=== PATIENT | male | born 1980 | race African-American/Black ===

== ENCOUNTER 2022-10-23 12:10 | Inpatient (IN) | payer OTHER ==
[~2022-10-23] VITALS: Ht 185.4 cm; Wt 92.5 kg
[2022-10-23] MEDS ORDERED: MORPHINE SULFATE 4 MG/ML CPJ (NOT FOR IM USE) IV STA (14:22)
[2022-10-23] MEDS ORDERED: ONDANSETRON HCL 4MG/2ML INJ IV STA (14:22)
[2022-10-23] MEDS ORDERED: SODIUM CHLORIDE 0.9% 1,000 ML IV ONE (14:30)
[2022-10-23 15:04] LABS: HEMATOCRIT. 40.3 % (42.0-52.0); HEMOGLOBIN. 13.5 g/dL (14.0-18.0); MEAN CORPUSCULAR HEMOGLOBIN 31.1 pg (28.0-32.0); MEAN CORPUSCULAR VOLUME 92.8 fL (80.0-94.0); MEAN PLATELET VOLUME 8.3 fl (7.4-10.4); PLATELET 279 x1000/uL (130-400); RED BLOOD CELL COUNT 4.34 mill/uL (4.7-6.1); RED CELL DISTRIBUTION WIDTH 13.9 % (11.6-14.6)
[2022-10-23 15:15] LABS: CHLORIDE 100 mEq/L (98-107)
[2022-10-23 15:46] LABS: INR 1.4; PARTIAL THROMBOPLASTIN TIME 32.5 sec (23.4-31.0); PROTHROMBIN TIME 14.4 sec (9.6-11.0)
[2022-10-23 16:25] LABS: PLATELET ESTIMATE NORMAL
[2022-10-23] MEDS ORDERED: PIPERACILLIN/TAZ 3.375G PREMIX 50 ML IV ONE (16:30)
[2022-10-23] MEDS ORDERED: SKIN ADHESIVE 0.7 GM EA TOP ONE (18:45)
[2022-10-23] MEDS ORDERED: BUPIVACAINE HCL/PF 0.5% (5MG/ML) 10ML ONE (18:45)
[2022-10-23] MEDS ORDERED: DEXAMETHASONE 4MG/ML 1ML VIAL ONE (19:45)
[2022-10-23] MEDS ORDERED: SUCCINYLCHOLINE CHLORIDE 200MG/10ML IV ONE (19:45)
[2022-10-23] MEDS ORDERED: ROCURONIUM BROMIDE 10MG/ML VIAL 5ML IV ONE (19:45)
[2022-10-23] MEDS ORDERED: NEOSTIGMINE METHYLSULFATE 1MG/ML 10 ML VIAL ONE (19:45)
[2022-10-23] MEDS ORDERED: ONDANSETRON HCL 4MG/2ML INJ ONE (19:45)
[2022-10-23] MEDS ORDERED: FENTANYL CITRATE/PF 50MCG/ML 2ML VIAL ONE (19:46)
[2022-10-23] MEDS ORDERED: PROPOFOL 200MG/20ML VIAL IV ONE (19:46)
[2022-10-23] MEDS ORDERED: GLYCOPYRROLATE 0.2 MG/ML 2ML VIAL ONE ×2 (19:46)
[2022-10-23] MEDS ORDERED: MIDAZOLAM HCL 2 MG/2 ML VIAL ONE (19:47)
[2022-10-23] MEDS ORDERED: HYDROMORPHONE HCL/PF 2MG/ML CPJ IV PRN (20:30)
[2022-10-23] MEDS ORDERED: LABETALOL 5MG/ML SYR 20 MG/4 ML SYRINGE IV PRN (20:30)
[2022-10-23] MEDS ORDERED: MEPERIDINE HCL/PF 25MG/ML CPJ IV PRN (20:30)
[2022-10-23] MEDS ORDERED: ONDANSETRON HCL 4MG/2ML INJ IV PRN (20:30)
[2022-10-23] MEDS ORDERED: HYDROMORPHONE HCL/PF 2MG/ML CPJ ONE (20:46)
[2022-10-23] MEDS ORDERED: IPRATROPIUM/ALBUTEROL 0.5-3(2.5)MG/3ML NEB HHN NR (21:15)
[2022-10-23] MEDS ORDERED: MORPHINE SULFATE 2 MG/ML CPJ (NOT FOR IM USE) IV PRN (21:30)
[2022-10-23] MEDS ORDERED: IPRATROPIUM/ALBUTEROL 0.5-3(2.5)MG/3ML NEB HHN PRN (22:15)
[2022-10-23 22:39] VITALS: BP 110/63
[2022-10-23] MEDS ORDERED: PIPERACILLIN/TAZOBACTAM 3.375GM/50ML PREMIX IV SCH (23:00)
[2022-10-24] MEDS ORDERED: PIPERACILLIN/TAZOBACTAM 3.375GM/50ML PREMIX IV SCH (01:00)
[2022-10-24] MEDS: PIPERACILLIN/TAZOBACTAM 3.375G in DEXT 5% WATER 50ML IV SCH ×3 (01:51→23:33)
[2022-10-24] MEDS: DEXT 5%/0.45% NACL KCL 20MEQ/L 1,000 ML IV SCH ×3 (07:30→18:13)
[2022-10-24 08:00] VITALS: BP 110/73
[2022-10-24] MEDS ORDERED: NALOXONE HCL 0.4MG/ML VIAL IV PRN (09:15)
[2022-10-24] MEDS: FAMOTIDINE 20MG/2ML VIAL IV SCH ×2 (09:17→23:33)
[2022-10-24 12:00] VITALS: BP 116/68
[2022-10-24 16:00] VITALS: BP 110/66
[2022-10-24 16:01] LABS: *AMPHETAMINES SCREEN URINE NEGATIVE (NEGATIVE); *BARBITURATES SCREEN URINE NEGATIVE (NEGATIVE); *BENZODIAZEPINES SCREEN URINE PRESUMTIVE POSITIVE (NEGATIVE); *COCAINE SCREEN URINE NEGATIVE (NEGATIVE); CANNABINOID URINE SCREEN NEGATIVE (NEGATIVE); METHADONE URINE SCREEN NEGATIVE (NEGATIVE); OPIATES URINE SCREEN PRESUMTIVE POSITIVE (NEGATIVE); PHENCYCLIDINE URINE SCREEN NEGATIVE (NEGATIVE)
[2022-10-24 17:44] LABS: HEMATOCRIT. 34.9 % (42.0-52.0); HEMOGLOBIN. 11.6 g/dL (14.0-18.0); MEAN CORPUSCULAR HEMOGLOBIN 30.9 pg (28.0-32.0); MEAN CORPUSCULAR VOLUME 93.2 fL (80.0-94.0); MEAN PLATELET VOLUME 8.5 fl (7.4-10.4); PLATELET 223 x1000/uL (130-400); RED BLOOD CELL COUNT 3.75 mill/uL (4.7-6.1); RED CELL DISTRIBUTION WIDTH 13.9 % (11.6-14.6)
[2022-10-24 23:43] LABS: PLATELET ESTIMATE NORMAL
[2022-10-24] MEDS: MORPHINE SULFATE 4 MG/ML CPJ (NOT FOR IM USE) IV PRN (23:51)
[2022-10-25] MEDS: DEXT 5%/0.45% NACL KCL 20MEQ/L 1,000 ML IV SCH ×3 (04:55→23:58)
[2022-10-25] MEDS: PIPERACILLIN/TAZOBACTAM 3.375G in DEXT 5% WATER 50ML IV SCH ×3 (07:19→21:44)
[2022-10-25 07:28] LABS: BASOPHILS % 0.1 % (0.0-2.0); EOSINOPHILS % 0.1 % (0.0-5.0); HEMATOCRIT. 35.9 % (42.0-52.0); LYMPHOCYTES % 13.1 % (20.0-50.0); MEAN CORPUSCULAR HEMOGLOBIN 31.2 pg (28.0-32.0); MEAN PLATELET VOLUME 8.7 fl (7.4-10.4); MONOCYTES % 5.1 % (2.0-8.0); NEUTROPHILS % 81.6 % (40.0-76.0); PLATELET 251 x1000/uL (130-400); RED BLOOD CELL COUNT 3.86 mill/uL (4.7-6.1); RED CELL DISTRIBUTION WIDTH 13.6 % (11.6-14.6)
[2022-10-25] MEDS: MORPHINE SULFATE 4 MG/ML CPJ (NOT FOR IM USE) IV PRN (07:40)
[2022-10-25 07:44] LABS: CHLORIDE 101 mEq/L (98-107)
[2022-10-25 08:00] VITALS: BP 145/85
[2022-10-25] MEDS: FAMOTIDINE 20MG/2ML VIAL IV SCH ×2 (09:13→20:15)
[2022-10-25 12:00] VITALS: BP 168/87
[2022-10-25] MEDS: HYDROCODONE/ACETAMINOPHEN 5/325MG TABLET PO PRN (13:50)
[2022-10-25] MEDS: ONDANSETRON HCL 4MG/2ML INJ IV PRN (14:13)
[2022-10-25] MEDS ORDERED: IPRATROPIUM BROMIDE (0.02%) 0.5MG/2.5ML NEB HHN PRN (18:30)
[2022-10-25] MEDS ORDERED: ALBUTEROL (0.083%) 2.5MG/3ML NEB HHN PRN (18:30)
[2022-10-25 20:00] VITALS: BP 157/90
[2022-10-26] VITALS: BP 148/85
[2022-10-26] MEDS: ONDANSETRON HCL 4MG/2ML INJ IV PRN ×2 (00:10→14:12)
[2022-10-26 04:00] VITALS: BP 148/90
[2022-10-26] MEDS: PIPERACILLIN/TAZOBACTAM 3.375G in DEXT 5% WATER 50ML IV SCH ×3 (05:29→21:24)
[2022-10-26] MEDS ORDERED: CLONIDINE 0.1MG TABLET PO PRN (07:00)
[2022-10-26 07:13] LABS: BASOPHILS % 0.1 % (0.0-2.0); EOSINOPHILS % 0.1 % (0.0-5.0); LYMPHOCYTES % 11.3 % (20.0-50.0); MEAN CORPUSCULAR VOLUME 92.6 fL (80.0-94.0); MEAN PLATELET VOLUME 8.6 fl (7.4-10.4); MONOCYTES % 6.5 % (2.0-8.0); PLATELET 364 x1000/uL (130-400); RED BLOOD CELL COUNT 4.73 mill/uL (4.7-6.1); RED CELL DISTRIBUTION WIDTH 13.7 % (11.6-14.6)
[2022-10-26 07:19] LABS: HEMATOCRIT. 43.8 % (42.0-52.0); HEMOGLOBIN. 14.6 g/dL (14.0-18.0)
[2022-10-26 08:00] VITALS: BP 150/98
[2022-10-26] MEDS: FAMOTIDINE 20MG/2ML VIAL IV SCH ×2 (08:52→21:23)
[2022-10-26] MEDS: HYDROCODONE/ACETAMINOPHEN 5/325MG TABLET PO PRN (09:38)
[2022-10-26] MEDS: DEXT 5%/0.45% NACL KCL 20MEQ/L 1,000 ML IV SCH ×2 (10:00→20:00)
[2022-10-26 12:00] VITALS: BP 144/95
[2022-10-26] MEDS ORDERED: LEVO-65 MT ×2 (12:24)
[2022-10-26] MEDS ORDERED: METR-167 MT ×2 (12:24)
[2022-10-26 15:27] VITALS: BP 147/82
[2022-10-26 20:00] VITALS: BP 120/80
[2022-10-27] VITALS: BP 122/80
[2022-10-27] MEDS: PIPERACILLIN/TAZOBACTAM 3.375G in DEXT 5% WATER 50ML IV SCH ×3 (05:23→22:04)
[2022-10-27] MEDS: DEXT 5%/0.45% NACL KCL 20MEQ/L 1,000 ML IV SCH ×2 (05:23→16:37)
[2022-10-27 08:00] VITALS: BP 125/86
[2022-10-27] MEDS: FAMOTIDINE 20MG/2ML VIAL IV SCH ×2 (08:26→21:54)
[2022-10-27 12:00] VITALS: BP 117/85
[2022-10-27 16:00] VITALS: BP 128/82
[2022-10-27] MEDS ORDERED: VANCOMYCIN 500MG PREMIX 100 ML IV SCH (17:00)
[2022-10-27] MEDS ORDERED: ACETAMINOPHEN 325MG TABLET PO PRN (17:00)
[2022-10-27 18:33] LABS: BASOPHILS % 0.1 % (0.0-2.0); EOSINOPHILS % 0.2 % (0.0-5.0); HEMATOCRIT. 42.4 % (42.0-52.0); LYMPHOCYTES % 11.2 % (20.0-50.0); MEAN CORPUSCULAR HEMOGLOBIN 30.8 pg (28.0-32.0); MEAN CORPUSCULAR VOLUME 92.9 fL (80.0-94.0); MONOCYTES % 7.4 % (2.0-8.0); NEUTROPHILS % 81.1 % (40.0-76.0); PLATELET 409 x1000/uL (130-400); RED BLOOD CELL COUNT 4.56 mill/uL (4.7-6.1); RED CELL DISTRIBUTION WIDTH 13.6 % (11.6-14.6)
[2022-10-27 18:47] LABS: CHLORIDE 99 mEq/L (98-107)
[2022-10-27 20:00] VITALS: BP 128/82
[2022-10-27] MEDS: ENOXAPARIN 40MG/0.4ML SYR SUBCUT SCH (21:54)
[2022-10-28] VITALS: BP 123/73
[2022-10-28] MEDS: DEXT 5%/0.45% NACL KCL 20MEQ/L 1,000 ML IV SCH ×3 (02:00→22:11)
[2022-10-28] MEDS: VANCOMYCIN 1G PREMIX 200 ML IV SCH (02:42)
[2022-10-28] MEDS: HYDROCODONE/ACETAMINOPHEN 5/325MG TABLET PO PRN (02:59)
[2022-10-28 04:00] VITALS: BP 118/73
[2022-10-28] MEDS: PIPERACILLIN/TAZOBACTAM 3.375G in DEXT 5% WATER 50ML IV SCH ×3 (05:38→22:12)
[2022-10-28 07:00] LABS: BASOPHILS % 0.4 % (0.0-2.0); EOSINOPHILS % 0.5 % (0.0-5.0); HEMATOCRIT. 39.5 % (42.0-52.0); MEAN CORPUSCULAR HEMOGLOBIN 30.6 pg (28.0-32.0); MEAN CORPUSCULAR VOLUME 92.4 fL (80.0-94.0); MEAN PLATELET VOLUME 8.1 fl (7.4-10.4); MONOCYTES % 8.5 % (2.0-8.0); NEUTROPHILS % 79.6 % (40.0-76.0); PLATELET 376 x1000/uL (130-400); RED BLOOD CELL COUNT 4.27 mill/uL (4.7-6.1); RED CELL DISTRIBUTION WIDTH 13.8 % (11.6-14.6)
[2022-10-28 07:38] LABS: CHLORIDE 99 mEq/L (98-107)
[2022-10-28 08:00] VITALS: BP 117/85
[2022-10-28] MEDS: FAMOTIDINE 20MG/2ML VIAL IV SCH ×2 (09:22→22:11)
[2022-10-28] MEDS: VANCOMYCIN 1.25GM PMX (XELLIA) 250 ML IV SCH (11:20)
[2022-10-28] MEDS: BISACODYL 10MG SUPP PR PRN ×2 (11:21→17:35)
[2022-10-28 12:00] VITALS: BP 123/82
[2022-10-28 16:00] VITALS: BP 119/61
[2022-10-28] MEDS: ENOXAPARIN 40MG/0.4ML SYR SUBCUT SCH (22:11)
[2022-10-29] MEDS: VANCOMYCIN 1.25GM PMX (XELLIA) 250 ML IV SCH ×3 (01:09→22:55)
[2022-10-29 08:00] VITALS: BP 136/83
[2022-10-29 08:23] LABS: CHLORIDE 100 mEq/L (98-107)
[2022-10-29] MEDS: DEXT 5%/0.45% NACL KCL 20MEQ/L 1,000 ML IV SCH ×2 (08:37→17:24)
[2022-10-29] MEDS: ONDANSETRON HCL 4MG/2ML INJ IV PRN ×2 (08:38→17:23)
[2022-10-29] MEDS: FAMOTIDINE 20MG/2ML VIAL IV SCH ×2 (08:38→20:57)
[2022-10-29 12:27] VITALS: BP 132/70
[2022-10-29 16:00] VITALS: BP 120/71
[2022-10-29] MEDS ORDERED: DIATR MEGLU/DIATRIZOATE SOLN 30ML PO SCH (16:45)
[2022-10-29 20:00] VITALS: BP 126/67
[2022-10-29] MEDS: ENOXAPARIN 40MG/0.4ML SYR SUBCUT SCH (20:57)
[2022-10-29 21:16] LABS: BASOPHILS % 0.1 % (0.0-2.0); EOSINOPHILS % 0.7 % (0.0-5.0); HEMATOCRIT. 37.2 % (42.0-52.0); HEMOGLOBIN. 11.9 g/dL (14.0-18.0); LYMPHOCYTES % 11.5 % (20.0-50.0); MEAN CORPUSCULAR HEMOGLOBIN 29.9 pg (28.0-32.0); MEAN CORPUSCULAR VOLUME 93.6 fL (80.0-94.0); MEAN PLATELET VOLUME 7.7 fl (7.4-10.4); MONOCYTES % 9.2 % (2.0-8.0); NEUTROPHILS % 78.5 % (40.0-76.0); PLATELET 385 x1000/uL (130-400); RED BLOOD CELL COUNT 3.97 mill/uL (4.7-6.1); RED CELL DISTRIBUTION WIDTH 13.9 % (11.6-14.6)
[2022-10-29 21:32] LABS: CHLORIDE 103 mEq/L (98-107)
[2022-10-30] VITALS: BP 123/73
[2022-10-30] MEDS: DEXT 5%/0.45% NACL KCL 20MEQ/L 1,000 ML IV SCH ×3 (03:57→23:14)
[2022-10-30 04:00] VITALS: BP 99/61
[2022-10-30 08:00] VITALS: BP 123/71
[2022-10-30] MEDS ORDERED: DIATR MEGLU/DIATRIZOATE SOLN 30ML PO NR (08:15)
[2022-10-30] MEDS: FAMOTIDINE 20MG/2ML VIAL IV SCH ×2 (08:43→20:11)
[2022-10-30 10:36] LABS: BASOPHILS % 0.2 % (0.0-2.0); EOSINOPHILS % 0.9 % (0.0-5.0); HEMOGLOBIN. 12.4 g/dL (14.0-18.0); LYMPHOCYTES % 13.4 % (20.0-50.0); MEAN CORPUSCULAR HEMOGLOBIN 30.3 pg (28.0-32.0); MEAN CORPUSCULAR VOLUME 92.5 fL (80.0-94.0); MEAN PLATELET VOLUME 7.7 fl (7.4-10.4); MONOCYTES % 8.3 % (2.0-8.0); NEUTROPHILS % 77.2 % (40.0-76.0); PLATELET 407 x1000/uL (130-400); RED CELL DISTRIBUTION WIDTH 13.6 % (11.6-14.6)
[2022-10-30 12:00] VITALS: BP 131/65
[2022-10-30] MEDS: VANCOMYCIN 1.25GM PMX (XELLIA) 250 ML IV SCH ×2 (13:12→23:13)
[2022-10-30] MEDS ORDERED: IOHEXOL-300 100 ML BOTTLE ONE (14:29)
[2022-10-30 16:00] VITALS: BP 134/72
[2022-10-30] MEDS: METRONIDAZOLE 500 MG PREMIX 100 ML IV SCH (19:56)
[2022-10-30] MEDS: CEFTRIAXONE 2 G in DEXTROSE 5% WATER 50 ML IV SCH (19:56)
[2022-10-30 20:00] VITALS: BP 122/83
[2022-10-30] MEDS: ENOXAPARIN 40MG/0.4ML SYR SUBCUT SCH (20:11)
[2022-10-31] VITALS (13 sets, daily range): BP systolic 108–137; BP diastolic 57–85
[2022-10-31] MEDS: METRONIDAZOLE 500 MG PREMIX 100 ML IV SCH ×3 (01:54→17:43)
[2022-10-31 07:08] LABS: BASOPHILS % 0.1 % (0.0-2.0); EOSINOPHILS % 0.6 % (0.0-5.0); HEMATOCRIT. 38.4 % (42.0-52.0); HEMOGLOBIN. 12.5 g/dL (14.0-18.0); LYMPHOCYTES % 13.5 % (20.0-50.0); MEAN CORPUSCULAR HEMOGLOBIN 30.1 pg (28.0-32.0); MEAN CORPUSCULAR VOLUME 92.4 fL (80.0-94.0); MEAN PLATELET VOLUME 8.1 fl (7.4-10.4); MONOCYTES % 6.9 % (2.0-8.0); NEUTROPHILS % 78.9 % (40.0-76.0); PLATELET 440 x1000/uL (130-400); RED BLOOD CELL COUNT 4.15 mill/uL (4.7-6.1); RED CELL DISTRIBUTION WIDTH 13.6 % (11.6-14.6)
[2022-10-31] MEDS ORDERED: FENTANYL CITRATE/PF 50MCG/ML 2ML VIAL ONE (07:11)
[2022-10-31] MEDS ORDERED: LIDOCAINE HCL 1% 10 MG/ML 10ML VIAL ONE (07:11)
[2022-10-31] MEDS ORDERED: SODIUM BICARBONATE 4% (2.4MEQ) 5ML VIAL IV ONE (07:11)
[2022-10-31 07:28] LABS: CHLORIDE 103 mEq/L (98-107)
[2022-10-31] MEDS ORDERED: FENTANYL CITRATE/PF 50MCG/ML 2ML VIAL IV ONE (08:15)
[2022-10-31] MEDS: FAMOTIDINE 20MG/2ML VIAL IV SCH ×2 (09:08→21:56)
[2022-10-31] MEDS: DEXT 5%/0.45% NACL KCL 20MEQ/L 1,000 ML IV SCH ×2 (10:00→22:06)
[2022-10-31] MEDS: VANCOMYCIN 1.25GM PMX (XELLIA) 250 ML IV SCH (11:23)
[2022-10-31] MEDS: CEFTRIAXONE 2 G in DEXTROSE 5% WATER 50 ML IV SCH (18:00)
[2022-10-31] MEDS: ENOXAPARIN 40MG/0.4ML SYR SUBCUT SCH (22:15)
[2022-11-01] VITALS: BP 116/71
[2022-11-01] MEDS: VANCOMYCIN 1.25GM PMX (XELLIA) 250 ML IV SCH ×3 (00:47→23:28)
[2022-11-01] MEDS: METRONIDAZOLE 500 MG PREMIX 100 ML IV SCH ×3 (02:46→19:01)
[2022-11-01 04:00] VITALS: BP 116/67
[2022-11-01] MEDS: DEXT 5%/0.45% NACL KCL 20MEQ/L 1,000 ML IV SCH ×2 (05:55→15:51)
[2022-11-01 08:00] VITALS: BP 105/65
[2022-11-01] MEDS: FAMOTIDINE 20MG/2ML VIAL IV SCH ×2 (09:23→23:27)
[2022-11-01 12:00] VITALS: BP 102/60
[2022-11-01 16:00] VITALS: BP 117/64
[2022-11-01] MEDS: CEFTRIAXONE 2 G in DEXTROSE 5% WATER 50 ML IV SCH (18:30)
[2022-11-01] MEDS: ENOXAPARIN 40MG/0.4ML SYR SUBCUT SCH (23:28)
[2022-11-02] MEDS: METRONIDAZOLE 500 MG PREMIX 100 ML IV SCH ×3 (02:02→18:02)
[2022-11-02] MEDS: DEXT 5%/0.45% NACL KCL 20MEQ/L 1,000 ML IV SCH ×3 (02:03→21:14)
[2022-11-02 08:00] VITALS: BP 116/75
[2022-11-02] MEDS ORDERED: BISACODYL 10MG SUPP PR SCH (09:00)
[2022-11-02] MEDS: FAMOTIDINE 20MG/2ML VIAL IV SCH ×2 (10:50→21:13)
[2022-11-02 12:00] VITALS: BP 135/88
[2022-11-02] MEDS: VANCOMYCIN 1.25GM PMX (XELLIA) 250 ML IV SCH (13:28)
[2022-11-02 16:00] VITALS: BP 122/74
[2022-11-02 17:28] LABS: BASOPHILS % 0.2 % (0.0-2.0); EOSINOPHILS % 0.7 % (0.0-5.0); HEMATOCRIT. 37.4 % (42.0-52.0); HEMOGLOBIN. 12.5 g/dL (14.0-18.0); LYMPHOCYTES % 14.6 % (20.0-50.0); MEAN CORPUSCULAR HEMOGLOBIN 30.5 pg (28.0-32.0); MEAN CORPUSCULAR VOLUME 91.4 fL (80.0-94.0); MEAN PLATELET VOLUME 7.6 fl (7.4-10.4); MONOCYTES % 5.1 % (2.0-8.0); NEUTROPHILS % 79.4 % (40.0-76.0); PLATELET 421 x1000/uL (130-400); RED BLOOD CELL COUNT 4.09 mill/uL (4.7-6.1); RED CELL DISTRIBUTION WIDTH 13.5 % (11.6-14.6)
[2022-11-02 17:38] LABS: CHLORIDE 106 mEq/L (98-107)
[2022-11-02] MEDS: CEFTRIAXONE 2 G in DEXTROSE 5% WATER 50 ML IV SCH (18:08)
[2022-11-02 20:00] VITALS: BP 122/78
[2022-11-02] MEDS: ENOXAPARIN 40MG/0.4ML SYR SUBCUT SCH (21:13)
[2022-11-03] VITALS: BP 128/72
[2022-11-03] MEDS: VANCOMYCIN 1.25GM PMX (XELLIA) 250 ML IV SCH ×2 (00:46→12:16)
[2022-11-03] MEDS: METRONIDAZOLE 500 MG PREMIX 100 ML IV SCH ×3 (02:00→17:27)
[2022-11-03 04:00] VITALS: BP 124/77
[2022-11-03 08:00] VITALS: BP 127/78
[2022-11-03] MEDS: FAMOTIDINE 20MG/2ML VIAL IV SCH (09:24)
[2022-11-03] MEDS: DEXT 5%/0.45% NACL KCL 20MEQ/L 1,000 ML IV SCH (10:16)
[2022-11-03 12:00] VITALS: BP 130/74
[2022-11-03] MEDS: CEFTRIAXONE 2 G in DEXTROSE 5% WATER 50 ML IV SCH (16:39)
[2022-11-03] MEDS: ENOXAPARIN 40MG/0.4ML SYR SUBCUT SCH (21:36)
[2022-11-03] MEDS: FAMOTIDINE 20MG TABLET PO SCH (21:36)
[2022-11-04] MEDS: METRONIDAZOLE 500 MG PREMIX 100 ML IV SCH ×3 (05:11→18:54)
[2022-11-04] MEDS: DEXT 5%/0.45% NACL KCL 20MEQ/L 1,000 ML IV SCH ×2 (05:12→14:53)
[2022-11-04 08:00] VITALS: BP 119/74
[2022-11-04] MEDS: FAMOTIDINE 20MG TABLET PO SCH ×2 (09:04→20:39)
[2022-11-04 12:00] VITALS: BP 120/72
[2022-11-04 16:00] VITALS: BP 108/57
[2022-11-04] MEDS: CEFTRIAXONE 2 G in DEXTROSE 5% WATER 50 ML IV SCH (18:03)
[2022-11-04 20:00] VITALS: BP 120/68
[2022-11-04] MEDS: ENOXAPARIN 40MG/0.4ML SYR SUBCUT SCH (20:40)
[2022-11-05] VITALS: BP 120/80
[2022-11-05] MEDS: METRONIDAZOLE 500 MG PREMIX 100 ML IV SCH ×2 (02:57→10:32)
[2022-11-05 04:00] VITALS: BP 120/77
[2022-11-05] MEDS: DEXT 5%/0.45% NACL KCL 20MEQ/L 1,000 ML IV SCH ×2 (06:50→10:37)
[2022-11-05 08:00] VITALS: BP 117/76
[2022-11-05] MEDS: FAMOTIDINE 20MG TABLET PO SCH (08:31)
[2022-11-05 12:00] VITALS: BP 102/61
[2022-11-05] MEDS ORDERED: DOCU-138 MT ×2 (13:41)
[2022-11-05] MEDS ORDERED: HYDR-4001 MT (13:41)
[2022-11-05 14:52] VITALS: BP 117/76
[2022-11-05 16:00] VITALS: BP 109/64
== END 2022-11-05 19:07 | disposition home or self-care (01) | DRG 710 ==
LOC: ER 12:10 → 6EST 18:15
PROVIDERS: ADMIT Internal Medicine; ATTEND Internal Medicine
PROC: 0DTJ4ZZ Resection of Appendix, Percutaneous Endoscopic Approach (ICD-10-PCS; principal; 2022-10-23)
PROC: 0W9G3ZX Drainage of Peritoneal Cavity, Percutaneous Approach, Diagnostic (ICD-10-PCS; 2022-10-31)
DX: A41.9 Sepsis, unspecified organism (principal); K35.33 Acute appendicitis with perforation, localized peritonitis, and gangrene, with abscess; Z20.822 Contact with and (suspected) exposure to COVID-19; K91.30 Postprocedural intestinal obstruction, unspecified as to partial versus complete; Z88.8 Allergy status to other drugs, medicaments and biological substances; Y84.9 Medical procedure, unspecified as the cause of abnormal reaction of the patient, or of later complication, without mention of misadventure at the time of the procedure; Y82.9 Unspecified medical devices associated with adverse incidents
CPT/HCPCS: 36415; 71045; 74018; 74176; 74177; 77012; 80048; 80053; 80202; 80305; 83735; 84145; 85025; 86850; 86900; 87077; 87186; 87426; 88304; 94640; 99152; 99153; 99285; C1729; C1760; C1769; C1893; C9803; J0330; J0696; J1100; J1170; J1650; J2250; J2270; J2405; J2543; J2704; J2710; J3010; J3370; J3490; J7030; J7060; L8514; Q9963; Q9967; G0500